=== PATIENT | female | born 1995 | race Hispanic/Latino ===

== ENCOUNTER 2016-08-28 14:05 | Emergency (ER) | payer SELFPAY ==
[~2016-08-28] VITALS: Ht 149.9 cm; Wt 64.4 kg
[2016-08-28] MEDS ORDERED: BENADRYL50 MG PO (17:53)
[2016-08-28] MEDS ORDERED: PEPCID20 MG PO (17:53)
[2016-08-28] MEDS ORDERED: PREDNISONE20 MG PO (17:53)
[2016-08-28 18:03] VITALS: BP 128/92
== END 2016-08-28 18:04 | disposition home or self-care (01) ==
LOC: RME 14:05 → EME 14:05 → RME 18:04
DX: L50.9 Urticaria, unspecified (principal)
CPT/HCPCS: 99281; 99284; J7512

== ENCOUNTER 2017-09-06 21:44 | Emergency (ER) | payer BC ==
[~2017-09-06] VITALS: Ht 162.6 cm; Wt 70.6 kg
[~2017-09-06 21:44] MED LIST: BENADRYL50 MG PO; PEPCID20 MG PO; PREDNISONE20 MG PO
[2017-09-06 22:07] LABS: APPEARANCE SL.HAZY ((CLEAR)); BILIRUBIN NEGATIVE; BLOOD MODERATE; COLOR YELLOW ((YELLOW)); GLUCOSE (STRIP) NEGATIVE; KETONES NEGATIVE; LEUKOCYTES TRACE; NITRITE NEGATIVE; PROTEIN (STRIP) NEGATIVE; SPECIFIC GRAVITY 1.016 (1.000-1.030); UROBILINOGEN 0.2 MG/DL (0.2-1.0)
[2017-09-06 22:13] LABS: BACTERIA NONE SEEN /HPF; EPITHELIAL CELLS 2+ /HPF; MUCUS NONE SEEN /LPF; RED BLOOD CELLS 0-5 /HPF (0-5); UCUL ADDED? NO; WHITE BLOOD CELLS 0-5 /HPF (0-5)
[2017-09-06 22:32] LABS: HEMOGLOBIN 12.4 G/DL (11.9-15.5); MCHC 33.5 G/DL (30.0-36.0); MCV 86.7 FL (83-99); PLATELET COUNT 324 K/uL (156-360); RBC DIS.WIDTH-CV 12.4 % (11.8-14.6); RED BLOOD COUNT 4.27 M/uL (3.80-5.20); WHITE BLOOD COUNT 9.5 K/uL (4.1-10.2)
[2017-09-06 22:43] LABS: ALBUMIN 4.4 g/dL (3.2-4.8)
[2017-09-06 22:44] LABS: CHLORIDE 108 mEq/L (99-109); POTASSIUM 4.6 mEq/L (3.7-5.4); SODIUM 138 mEq/L (136-147)
[2017-09-06 22:46] LABS: GLUCOSE 105 mg/dL (70-99); TOTAL PROTEIN 7.4 g/dL (6.4-8.3)
[2017-09-06 22:48] LABS: TOTAL BILIRUBIN 0.1 mg/dL (0.0-1.0)
[2017-09-06 22:49] LABS: ALKALINE PHOSPHATASE 89 IU/L (3-129)
[2017-09-06 22:50] LABS: CREATININE 0.7 mg/dL (0.6-1.3); GFR ESTIMATE (CALCULATED) > 59 mL/min/
[2017-09-06 22:51] LABS: AST (GOT) 16 IU/L (2-34); UREA NITROGEN (BUN) 14 mg/dL (9-23)
[2017-09-06 22:52] LABS: ALT (GPT) 20 IU/L (3-49)
[2017-09-06 22:53] LABS: LIPASE 17 U/L (1.0-51.0)
[2017-09-06 22:59] LABS: QUANTITATIVE HCG < 4.0 MIU/ML
[2017-09-07] MEDS ORDERED: ZOFRAN4 MG PO (00:54)
[2017-09-07] MEDS ORDERED: ZANTAC300 MG PO (00:54)
[2017-09-07 01:50] VITALS: BP 117/72
== END 2017-09-07 01:50 | disposition home or self-care (01) ==
LOC: EME 21:44
DX: K21.9 Gastro-esophageal reflux disease without esophagitis (principal); R11.2 Nausea with vomiting, unspecified; R51 Headache
CPT/HCPCS: 80053; 81003; 83690; 84702; 85027; 99281; 99283